=== PATIENT | female | born 1995 | race Hispanic/Latino ===

== ENCOUNTER 2022-07-23 08:49 | Emergency (ER) | payer OTHER ==
--- OUTSIDE RECORDS SUMMARY | 2022-07-23 08:54 | XMS REPORT | Continuity of Care Document ---
:1995 Author Organization [facility] t Address [address] [place] [address] Care Team Providers Name Role Phone Andreas Padilla MD Primary Care Physician ANDREAS PADILLA Attending Clinician Unavailable Margarita Ness PA-C Attending Clinician 2, Ad[facility] Lab Attending Clinician Unavailable Andreas Padilla MD Attending Clinician LISA STOCK Attending Clinician Unavailable Lisa Stock MD Attending Clinician Loly Chaidez MD Attending Clinician Doctor Unassigned, [place] Attending Clinician Unavailable Ultrasound, Ang-Mfm Attending Clinician Unavailable Mehreen Reeves MD Attending Clinician MEHREEN REEVES Attending Clinician Unavailable MEHREEN REEVES Attending Clinician Unavailable LISA STOCK Admitting Clinician Unavailable Lisa Stock MD Admitting Clinician Payers Payer Name Policy Type Policy Number Effective Date Expiration Date Araseli garcia [facility] JOSE [id number] 2022 00:00:00 Problems Condition Condition Condition Status Onset Resolution Last Treating Co mments Source Name Details Category Date Date Treatment Clinician Date Unprotecte Unprotecte Disease Active 2021-09 U nivers d sexual d sexual 09-12 [place] Medical Branch Encounter Encounter Disease Active 2021-09 Uni vers for for 08 [place] of screening [place] 00 Medical maternal maternal Branch depression depression Normal Normal Disease Active 2021-09 Univers labor labor 0-02 ity of 00:00: [place] 00 Medical [place] Liveborn Liveborn Disease Active 2021-09 Unive rs infant, of infant, of 0-02 it y of hunt hunt 00:00: Jennifer frank , , 00 Me dical born in born in [facility] hospital by vaginal by vaginal delivery delivery Encounter Encounter Disease Active Uni vers for for 05-14 [place] of supervisio [place] n of high 00 Medi danay risk risk [place] with with insufficie insufficie nt nt care, care, antepartum antepartum BMI BMI Disease Active Univers 40.0-44.9, 40.0-44.9, 05-14 it y of adult adult 00:00: [facility] Obesity in Obesity in Disease Active U nivers 05-14 ity of 00:00: [facility] Allergies, Adverse Reactions, Alerts Allergy Allergy Status Severity Reaction(s) Onset Inactive Treating Comm ents Source Name Type Date Date Clinician PEANUT DRUG Active Med ITCHING 2021-09 Univers INGREDI 0-02 ity of 00:00: [place] 00 [facility] Peanut Propensi Active Rash 2021-09 Univers ty to 0-02 ity of adverse 00:00: [place] reaction 00 [facility] s [place] NO KNOWN Drug Active Univers ALLERGIE Class ity of S [facility] Social History Social Habit Start Date Stop Date Quantity Comments Source ASSERTION 2021-09-18 University of 00:00:00 [facility] History of tobacco Passive smoker Un iversity of use [facility] History [facility] o f Alcohol Frequency [facility] edical Branch History [facility] University o f Alcohol Std Drinks [facility] History [facility] o f Alcohol Binge [place] Medic al [place] Exposure to 2022-07-03 2022-07-13 Not sure University SARS-CoV-2 (event) 00:00:00 14:14:00 [facility] Alcohol intake 2022-07-13 2022-07-13 Ex-drinker [facility] 00:00:00 00:00:00 (finding) [facility] Cigarettes smoked 2022-06-06 2022-06-06 Univers ity of current (pack per 00:00:00 00:00:00 [place] M ) - Reported Branch Tobacco use and 2022-06-06 2022-06-06 Smokeless Universit y of exposure 00:00:00 00:00:00 tobacco non-user [facility] dical Branch Alcohol Comment 2022-05-14 2022-05-14 2x a month Universit y of 00:00:00 00:00:00 [facility] Sex [birth year] At [birth year] Universit y of 00:00:00 00:00:00 [facility] Smoking Status Start Date Stop Date Source Ex-smoker 2022-06-06 00:00:00 2022-06-06 00:00:00 Universi ty of [facility] Medications Ordered Filled Start Stop Current Ordering Indication Dosage Frequency Signature Comments Components Source Medication Medication Date Date Medication? Clinician (SIG) Name Name preet 2021-09 Yes [id number] Take 1 Univers rol, 109 capsule by ity of vitamin d2, 00:00: mouth [place] 1,250 mcg 00 weekly. Medical (50,000 Branch unit) capsule No known 2021-09 No No known [place] rs medications 1-08 medication it y of 14:43: s [place] 19 Medical Branch 2021-09- No Take by Unive rs 25/iron 0-03 10-03 mouth. ity of fum/folic/d 07:56: 00:00 [place] 16 :00 Medical (-1 Branch ORAL) 2021-09- No Take by Unive rs 25/iron 0-03 10-03 mouth. ity of fum/folic/d 07:56: 00:00 [place] rebollar 16 :00 Medical (-1 Branch ORAL) 2021-09- No Take by [place] rs 25/iron 0-03 10-03 mouth. ity of fum/folic/d 07:56: 00:00 [place] rebollar 16 :00 Medical (-1 Branch ORAL) 2021-09- No Take by Unive rs 25/iron 0-03 10-03 mouth. ity of fum/folic/d 07:56: 00:00 [place] rebollar 16 :00 Medical (-1 Branch ORAL) 2021-09 Yes [id number] 1{tbl} Take 1 Univers vitamin 0-03 tablet by ity of w/FA tablet 00:00[place] the Medical morning. Branch docusate 2021-09 Yes [id number] 200mg Take 2 U nivers 100 mg 0-03 capsules ity of capsule 00:00: by mouth [place] 00 once daily Medical as needed Branch for Constipati on. ferrous 2021-09 Yes [id number] 325mg Take 1 Un luis miguel sulfate 325 0-03 tablet by ity of mg (65 mg 00:00: [place] iron) 00 the Medical tablet morning Branch and 1 tablet in the evening. ibuprofen 2021-09 Yes [id number] 600mg Take 1 Univers 600 mg 0-03 tablet by ity of tablet 00:00: mouth [place] 00 every 6 Medical (six) Branch hours as needed (Pain). Take with food or milk. 2021-09- No [id number] 1{tbl} Take 1 Univers vitamin 0-03 11-08 tablet by ity of w/FA tablet 00:00: 00:00 mouth [place] :00 the Medical morning. Branch docusate 2021-09- No [id number] 200mg Take 2 Univers 100 mg 0-03 11-08 capsules ity of capsule 00:00: 00:00 by mouth [place] 00 :00 once daily Medical as needed Branch for Constipati on. ferrous 2021-09- No [id number] 325mg Take 1 U nivers sulfate 325 0-03 11-08 tablet by it y of mg (65 mg 00:00: 00:00 mouth in [place] iron) 00 :00 the Medical tablet morning Branch and 1 tablet in the evening. ibuprofen 2021-09- No [id number] 600mg Take 1 Univers 600 mg 0-03 11-08 tablet by ity of tablet 00:00: 00:00 mouth [place] 00 :00 every 6 Medical (six) Branch hours as needed (Pain). Take with food or milk. rho(D) 2021-09 Yes 300ug 300 mcg, Univer s immune 0-02 Intramuscu ity of globulin 21:03: lar, ONCE, [place] (RHOGAM) 10 For 1 Medical syringe 300 dose, Branch mcg Conditiona l, Routine witch Katie 2021-09 Yes Topical, Un luis miguel (TUCKS) 50 0-02 Q4HPRN, ity of % topical 21:02: [place] pad 28 on Sun Medical 06/06/22 at Branch 1602, Until Discontinu ed, Routine, rectal/hem orrhoidal pain HYDROcodone 2021-09 Yes 1{tbl} 1 tablet, Univers -acetaminop 0-02 Oral, ity of hen (NORCO 21:01: Q6HPRN, [place] 5) 5-325 mg 51 Starting Medi danay tablet 1 on Sun Branch tablet 06/06/22 at 1601, Until Discontinu ed, Routine, Pain (scale 7-10) ibuprofen 2021-09 Yes 600mg 600 mg, Univ ers (IBU) 0-02 Oral, ity of tablet 600 21:: Q6HPRN, [place] mg 51 Starting Medical on Sun Branch 06/06/22 at 1601, Until Discontinu ed, Routine, Pain (scale 4-6) acetaminoph 2021-09 Yes 650mg 650 mg, Un luis miguel en 0-02 Oral, ity of (TYLENOL) 21:01: Q6HPRN, [place] tablet 650 51 Starting Medic al mg on Sun Branch 06/06/22 at 1601, Until Discontinu ed, Routine, Pain (scale 1-3) diphenhydrA 2021-09 Yes 25mg 25 mg, Univ ers MINE 0-02 Oral, ity of (BENADRYL) 21:01: Q6HPRN, [place] tablet 25 51 Starting Medica l mg on Sun Branch 06/06/22 at 1601, Until Discontinu ed, Routine, Sleep, Itching ondansetron 2021-09 Yes 4mg 4 mg, Slow Univers (ZOFRAN 0-02 IV Push, ity of (PF)) 21:01: Q8HPRN, [place] injection 4 51 Starting Medi danay mg on Sun Branch 06/06/22 at 1601, Until Discontinu ed, Routine, Nausea and Vomiting (N/V) simethicone 2021-09 Yes 160mg 160 mg, Un luis miguel (GAS RELIEF 0-02 Oral, ity of (SIMETHICON 21:01: PC+HSPRN, [place] E)) 50 Starting Medical chewable on Sun Branch tablet 160 10/2/22 at mg 1601, Until Discontinu ed, Routine, Gas docusate 2021-09 Yes 200mg 200 mg, Unive rs (COLACE) 0-02 Oral, ity of capsule 200 21:01: QDAILYPRN, [place] mg 50 Starting Medical on Sun Branch 06/06/22 at 1601, Until Discontinu ed, Routine, Constipati on magnesium 2021-09 Yes 30mL 30 mL, Univer s hydroxide 0-02 Oral, ity of (MILK OF 21:01: QDAILYPRN, [place] MAGNESIA) 50 Starting Medica l 400 mg/5 mL on [place] Branch suspension 06/06/22 at 30 mL 1601, Until Discontinu ed, Routine, Constipati on benzocaine- 2021-09 Yes Topical, Un luis miguel menthol 0-02 PRN, ity of (DERMOPLAST 21:01: [place] 20-0.5 % 50 on [place] Medical topical 06/06/22 at Branch spray 1601, Until Discontinu ed, Routine, Perineum discomfort fentaNYL-ro 2021-09- No Epidural, Univers pivacaine 2 006-06 ONCE INTRA i ty of mcg/mL-0.1 17:44: 22:56 PROCEDURE, [place] % (PF) in 00 :52 Starting Medica l NS 200 mL on Counts Include 234 Beds [facility] epidural 06/06/22 at infusion 1244, RTU Until 06/06/22 at 1756, Routine, Intra-op lidocaine-e 2021-09- No Intraderma Univers pinephrine 0-02 l, ONCE ity o f (XYLOCAINE 17:41: 22:56 INTRA [place] W/EPINEPHRI 00 :52 PROCEDURE, Me dical NE) 1.5 Starting Branch %-1:200,000 on [place] injection 06/06/22 at 1241, Until 06/06/22 at 1756, Routine, Intra-op FENTanyl PF 2021-09- No 100ug 100 mcg, Univers (SUBLIMAZE 006-06 Slow IV ity o f (PF)) 16:13: 21:03 Push, [place] injection 38 :09 Q1HPRN, 2 Medic al 100 mcg doses, Branch Starting on 06/06/22 at 1113, Until 06/06/22 at 1603, Routine, Pain (scale 7-10) 2021-09 Yes Take by Univer s 25/iron 0-02 mouth. ity of fum/folic/d 16:03: [place] rebollar 11 Medical (-1 Branch ORAL) lactated 2021-09- No 500mL at 999 Unive rs ringers IV 0-02 10-02 mL/hr, 500 it y of infusion 15:40: 21:03 mL, IV [place] 500 mL 17 :09 Infusion, Medical PRN - SEE Branch INSTRUCTIO NS, Starting on 06/06/22 at 1040, Until 06/06/22 at 1603, Routine D5W-LR IV 2021-09- No 1000mL at 1-125 U nivers infusion 0-02 10-02 mL/hr, IV ity o f 1,000 mL 15:40: 21:03 Infusion, [place] 17 :09 TITRATE, Medical Starting Branch on 06/06/22 at 1040, Until 06/06/22 at 1603, Routine 0 Yes Take by Univer s 25/iron 9-15 mouth. ity of fum/folic/d 13:08: [place] [id number] Medical (-1 Branch ORAL) Yes Take by Univer s 25/iron 9-15 mouth. ity of fum/folic/d 13:08: [place] [address] Medical (-1 Branch ORAL) Yes Take by Univer s 25/iron 9-15 mouth. ity of fum/folic/d 13:08: [place] [address] Medical (-1 Branch ORAL) 0 Yes Take by Univer s 25/iron 9-15 mouth. ity of fum/folic/d 13:08: [place] [address] Medical (-1 Branch ORAL) 0 Yes Take by Univer s 25/iron 9-15 mouth. ity of fum/folic/d 13:08: [place] [address] Medical (-1 Branch ORAL) Yes Take by Univer s 25/iron 9-09 mouth. ity of fum/folic/d 11:38: [facility] 22 Medical (-1 Branch ORAL) Yes Take by Univer s 25/iron 9-09 mouth. ity of fum/folic/d 11:38: [place] rebollar 22 Medical (-1 Branch ORAL) ferrous Yes [id number] 325mg Take 1 Un luis miguel sulfate 9-09 tablet by ity of (IRON, 00:00: mouth in [place] FERROUS 00 the Medical SULFATE,) morning Branch 325 mg (65 and 1 mg iron) tablet in tablet the evening. ferrous Yes [id number] 325mg Take 1 Un luis miguel sulfate 9-09 tablet by ity of (IRON, 00:00: mouth in [place] FERROUS 00 the Medical SULFATE,) morning Branch 325 mg (65 and 1 mg iron) tablet in tablet the evening. ferrous Yes [id number] 325mg Take 1 Un luis miguel sulfate 9-09 tablet by ity of (IRON, 00:00: mouth in [place] FERROUS 00 the Medical SULFATE,) morning Branch 325 mg (65 and 1 mg iron) tablet in tablet the evening. ferrous Yes [id number] 325mg Take 1 Un luis miguel sulfate 9-09 tablet by ity of (IRON, 00:00: mouth in [place] FERROUS 00 the Medical SULFATE,) morning Branch 325 mg (65 and 1 mg iron) tablet in tablet the evening. ferrous Yes [id number] 325mg Take 1 Un luis miguel sulfate 9-09 tablet by ity of (IRON, 00:00: mouth in [place] FERROUS 00 the Medical SULFATE,) morning Branch 325 mg (65 and 1 mg iron) tablet in tablet the evening. ferrous Yes [id number] 325mg Take 1 Un luis miguel sulfate 9-09 tablet by ity of (IRON, 00:00: mouth in [place] FERROUS 00 the Medical SULFATE,) morning Branch 325 mg (65 and 1 mg iron) tablet in tablet the evening. ferrous Yes [id number] 325mg Take 1 Un luis miguel sulfate 9-09 tablet by ity of (IRON, 00:00: mouth in [place] FERROUS 00 the Medical SULFATE,) morning Branch 325 mg (65 and 1 mg iron) tablet in tablet the evening. ferrous Yes [id number] 325mg Take 1 Un luis miguel sulfate 9-09 tablet by ity of (IRON, 00:00: mouth in [place] FERROUS 00 the Medical SULFATE,) morning Branch 325 mg (65 and 1 mg iron) tablet in tablet the evening. ferrous 2022- No [id number] 325mg Take 1 U nivers sulfate 05-14 tablet by ity of (IRON, 00:00: 00:00 mouth in [place] FERROUS 00 :00 the Medical SULFATE,) morning Branch 325 mg (65 and 1 mg iron) tablet in tablet the evening. ferrous No [id number] 325mg Take 1 U nivers sulfate 05-14 tablet by ity of (IRON, 00:00: 00:00 mouth in [place] FERROUS 00 :00 the Medical SULFATE,) morning Branch 325 mg (65 and 1 mg iron) tablet in tablet the evening. ferrous 2021- No [id number] 325mg Take 1 U nivers sulfate 05-14 tablet by ity of (IRON, 00:00: 00:00 mouth in [place] FERROUS 00 :00 the Medical SULFATE,) morning Branch 325 mg (65 and 1 mg iron) tablet in tablet the evening. ferrous No [id number] 325mg Take 1 U nivers sulfate 05-14 tablet by ity of (IRON, 00:00: 00:00 mouth in [place] FERROUS 00 :00 the Medical SULFATE,) morning Branch 325 mg (65 and 1 mg iron) tablet in tablet the evening. Vital Signs Vital Name Observation Time Observation Value Comments Source Systolic blood 2022-07-13 19:39:00 119 mm[Hg] [facility] 2022-07-13 19:39:00 83 mm[Hg] [facility] rate 2022-07-13 19:39:00 60 /min [facility] Body temperature 2022-07-13 19:39:00 37.06 [facility] Body height 2022-07-13 19:39:00 157.5 cm [facility] Body weight 2022-07-13 19:39:00 102.513 kg [facility] BMI 2022-07-13 19:39:00 41.34 kg/m2 [facility] Systolic blood 2022-06-07 18:00:00 121 mm[Hg] [facility] Diastolic blood 2022-06-07 18:00:00 77 mm[Hg] [facility] Heart rate 2022-06-07 18:00:00 62 /min Universi ty of [place] [facility] Body temperature 2022-06-07 18:00:00 36.28 [place] Univ ersity of [place] [facility] Respiratory rate 2022-06-07 18:00:00 18 /min Univ ersity of [place] [facility] Oxygen saturation in 2022-06-07 09:39:00 100 /min University of Arterial blood by [facility] Pulse oximetry Branch Body height 2022-06-06 15:20:00 157.5 cm Universi ty of [place] [facility] Body weight 2022-06-06 15:20:00 107.956 kg Universi ty of [place] [facility] BMI 2022-06-06 15:20:00 43.53 kg/m2 Universi ty of [place] [facility] Systolic blood 2022-05-27 13:27:00 117 mm[Hg] Univer sity of pressure [place] [facility] Diastolic blood 2022-05-27 13:27:00 77 mm[Hg] Unive rsity of pressure [place] [facility] Heart rate 2022-05-27 13:27:00 79 /min Universi ty of [place] [facility] Body temperature 2022-05-27 13:27:00 36.56 [place] Univ ersity of [place] [facility] Respiratory rate 2022-05-27 13:27:00 18 /min Univ ersity of [place] [facility] Body height 2022-05-27 13:27:00 157.5 cm Universi ty of [place] [facility] Body weight 2022-05-27 13:27:00 108.5 kg Universi ty of [place] [facility] BMI 2022-05-27 13:27:00 43.75 kg/m2 Universi ty of [place] [facility] Systolic blood 2022-05-20 18:07:00 130 mm[Hg] Univer sity of pressure [place] [facility] Diastolic blood 2022-05-20 18:07:00 85 mm[Hg] Unive rsity of pressure [place] [facility] Heart rate 2022-05-20 18:07:00 69 /min Universi ty of [place] [facility] Body temperature 2022-05-20 18:07:00 37 [place] Univ ers[facility] [place] [facility] Respiratory rate 2022-05-20 18:07:00 18 /min Univ ersity of [place] [facility] Body height 2022-05-20 18:07:00 157.5 cm Universi [facility] Body weight 2022-05-20 18:07:00 107.049 kg Universi [facility] BMI 2022-05-20 18:07:00 43.16 kg/m2 [facility] Systolic blood 2022-05-14 16:39:00 129 mm[Hg] [facility] Di[facility] blood 2022-05-14 16:39:00 84 mm[Hg] [facility] Heart rate 2022-05-14 16:36:00 86 /min [facility] Body temperature 2022-05-14 16:36:00 36.89 [facility] Respiratory rate 2022-05-14 16:36:00 18 /min [facility] Body height 2022-05-14 16:36:00 157.5 cm [facility] Body weight 2022-05-14 16:36:00 107.502 kg [facility] BMI 2022-05-14 16:36:00 43.35 kg/m2 [facility] Procedures Procedure Date / Time Performing Clinician Source Performed CBC WITH DIFF 2022-06-07 08:39:00 Andreas Padilal [facility] ABORH CONFIRMATION (LAB 2022-06-06 23:15:00 [facility] ONLY) [facility] CENTRAL NEURAXIAL BLOCK 2022-06-06 18:00:38 Loly Chaidez [facility] HB ABO GROUPING 2022-06-06 15:55:00 [facility] RHO (D) IMMUNE GLOBULIN 2022-06-06 15:55:00 Andreas Padilla [facility] CBC WITH DIFF 2022-06-06 15:54:00 [facility] HEPATITIS B SURFACE 2022-06-06 15:54:00 [facility] Lisa [facility] ANTIGEN [facility] ADC OR DERICK ONLY - 2022-06-06 15:54:00 Lisa Stock [facility] RPR [facility] HIV 1/2 AG-AB WITH 2022-06-06 15:54:00 Lisa Stock y of [place] REFLEX [facility] ASSIGNMENT OF BENEFITS 2022-06-06 14:56:44 Doctor Unassigned, No [facility] CONSENT/REFUSAL FOR 2022-06-06 14:51:45 [facility] Unassigned, No [facility] Name [facility] EXTERNAL PROVIDER 2022-05-31 05:01:00 Doctor Unassigned, No [facility] RECORDS Name [facility] POCT URINALYSIS W/O 2022-05-27 00:00:00 [facility] SPECIFIC GRAVITY [facility] NON-STRESS TEST 2022-05-21 03:54:51 Andreas Padilla [facility] POCT URINALYSIS W/O 2022-05-20 00:00:00 Andreas Padilla [facility] GROUP B STREPTOCOCCUS BY 2022-05-14 18:01:00 Andreas Padilla Uni [facility] >14 WEEKS US 2022-05-14 17:31:41 Andreas Padilla [facility] POCT TEST 2022-05-14 16:44:00 Andreas Padilla [facility] POCT URINALYSIS W/O 2022-05-14 16:43:00 Andreas Padilla [facility] Encounters Start End Encounter Admission Attending Care Care Encounter Source Date/Time Date/Time Type Type Clinicians Facility Department ID 2022-08-04 2022-08-04 Outpatient R ANDREAS PADILLA [facility] [id number] [facility] 10:30:00 10:30[facility]00 [facility]22-07-14 2022-07-14 Case Thi [facility] [id number] Univers 00:00:00 00:00:00 Management Margarita GREEN 350.1.13.10 [facility] 4.2.7.2.686 Jennifer LIEBERMAN [id number] Sc dical [address] 2022-07-13 2022-07-13 Photographic Process Attendant 2, Adc Lab [facility] [id number] Univers 14:30:00 14:45:00 Visit Andreas Padilla Sander REYNAASHA 350.1.13.10 ity of [place] 4.2.7.2.686 [place] PROFESSIO [id number] Sc dical NAL 353 [facility] 2022-07-13 2022-07-13 Outpatient R ANDREAS PADILLA [facility] [id number] Univers 13:15:00 14:12:14 ity of [facility] 2022-07-13 2022-07-13 Routine [facility] [id number] Univers 13:15:00 14:12:14 Sander GREEN 350.1.13.10 ity of [facility] 4.2.7.2.686 [facility] PROFESS[place] [id number] Sc dical NAL 134 [facility] 2022-06-06 2022-06-07 Inpatient X LISA STOCK [facility] GERM[facility]N [id number] Univers 09:56:00 19:08:00 ity of [facility] 2022-06-06 2022-06-07 Hospital Lisa Stock [facility] [id number] Univers 09:56:00 19:08:00 Encounter PETER 350.1.13.10 ity of [place] 4.2.7.2.686 [facility] [id number] [address] 2022-06-06 2022-06-06 [facility] [id number] Univers 12:32:00 16:43:00 Event Ollymayra GREEN 350.1.13.10 i ty of [place] 4.2.7.2.686 [facility] [id number] [address] 2022-06-03 2022-06-03 Outpatient R ANDREAS PADILLA [facility] [id number] Univers 09:15:00 09:15:00 ity of [facility] 2022-05-31 2022-05-31 Orders Doctor [facility] [id number] Univers 00:00:00 00:00:00 Only Unassigned, KIM 350.1.13.10 ity of [facility] 4.2.7.2.686 [place]ike as [id number] [address] 2022-05-27 2022-05-27 [facility] [id number] Univers 08:30:00 10:01:06 Cam [place] 350.1.13.10 ity of [place].686 [place] PROF[place] [id number] [address] 2022-05-27 2022-05-27 Outpatient R VALERIE [facility] [id number] Univers 08:30:00 10:01:06 ity of [facility] 2022-05-26 2022-05-26 Telephone [facility] [id number] Univers 00:00:00 00:00:00 Cam [place] 350.1.13.10 i ty of [place] 4[place]2.7.2.686 [place] PROF[place] [id number] [address] 2022-05-20 2022-05-20 Outpatient R VALERIE [facility] [id number] Univers 13:00:00 13:59:14 ity of [facility] 2022-05-20 2022-05-20 Routine [facility] [id number] Univers 13:00:00 13:59:14 Cam [place] 350.1.13.10 ity of [place] 4.2.7.2.686 [place] PROFESS[place] [id number] [address] 2022-05-20 2022-05-20 Outpatient R VALERIE [facility] [id number] Univers 13:00:00 13:00:00 ity of [facility] 2022-05-19 2022-05-19 Photographic Process Attendant Ultrasound, [facility] 1.2 .840.114 [id number] Univers 11:15:00 12:00:00 Visit Mehreen Reeves LACQUER SIZER 350.1.13.10 ity of [facility] 4.2.7.2.686 Kike as MATERNAL [id number] Med ical & CHILD [address] [place] [address] 2022-05-19 2022-05-19 Outpatient P [facility] [id number] Univers 11:15:00 11:15:00 [facility] 2022-05-19 2022-05-19 Outpatient P MEHREEN REEVES [facility] [id number] Univers 11:15:00 11:15:00 LEANDROMEHREEN [facility] 2022-05-14 2022-05-14 Outpatient R VALERIE [facility] [id number] Univers 11:00:00 12:32:07 [facility] 2022-05-14 2022-05-14 Outpatient R VALERIE [facility] [id number] Univers 11:00:00 12:32:07 [facility] 2022-05-14 2022-05-14 Initial [facility] [id number] [facility] 11:00:00 12:32:07 Cam ANDOVER [id number] i ty of Visit WOMEN'S [id number] [facility] [phone] [address] Results Test Description Test Time Test Comments Results Result Comments Source ADC OR DERICK ONLY - RPR 2022-06-07 05:46:03 Test Item Value Reference Range Interpretation Comme nts RPR (Qualitative) (test code = 20706-7) Nonreactive Nonreactive Lab Interpretation (test code = 68106-9) [facility] IMMUNE [id number] 23:48:33 Test Item Value Reference Range Interpretation Comments RHIG CANDIDATE? No- see comment Patient i s not a (test code = candidate for R hIg- 5055) Patient is Rh Positive.Perfor med at [facility] Laboratory Services - [facility] [address] [place], [place] [address]Bbjf Free: [phone] A No. [id number] [facility] Confirmation (Lab Only)2022-06-06 23:47:37 Test Item Value Reference Range Interpretation Comments ABO & RH (test code O Positive Performe d at [facility] = 20) Laboratory Serv ices - [facility] Blood [address] [place] [address] Free: [phone] A No. [id number] [facility] Surface [id number] 23:29:41 Test Item Value Reference Range Interpretation Comments HBsAg Semi-Quantitative (test code = Negative Negative 5195-3) [facility]2 AG-AB WITH [id number] 17:47:29 Test Item Value Reference Range Interpretation Comments HIV Negative Negative Semi-quantitative (test code = 31794-2) SABINO (test code = Non-reactive for HIV-1 SABINO) antigen and HIV-1/HIV-2 antibodies. ?No laboratory evidence of HIV infection. ?Repeat in 2-4 weeks if acute HIV infection is suspected. [facility] Screen - ONCE [id number] 17:03:38 Test Item Value Reference Range Interpretation Comments ABO & RH (test code O Positive Performe d at [facility] = 20) Laboratory [facility] Blood [address] [place] [address] Free: [phone] A No. [id number] IAT (test code = Negative Performed a t [facility] 1185) Laboratory [facility] Blood [address] [place] [address] Free: [phone] A No. [id number] [facility]CBC with [id number] 16:07:42 Test Item Value Reference Range Interpretation Comments WBC (test code = See_Comment H [Automated 7666-2) message] The system which generated this result transmit margo reference range : 4.30 - 11.10 10*3/?L. The reference range was not used to interpret this result as normal/abnormal . RBC (test code = See_Comment [Automated 189-8) message] The system which generated this result transmit margo reference range : 3.93 - 5.25 10*6/?L. The reference range was not used to interpret this result as normal/abnormal . HGB (test code = 13.0 g/dL 11.6-15 718-7) HCT (test code = 38.2 % 35.7-45.2 4544-3) MCV (test code = 87.0 fL 80.6-95.5 787-2) MCH (test code = 29.6 pg 25.9-32.8 785-6) MCHC (test code = 34.0 g/dL 31.6-35.1 786-4) RDW-SD (test code = 46.7 fL 39-49.9 58316-4) RDW-CV (test code = 14.7 % 12-15.5 788-0) PLT (test code = See_Comment [Automated 777-3) message] The system which generated this result transmit margo reference range : 166 - 358 10*3/ ?L. The reference range was not u sed to interpret th is result as normal/abnormal . MPV (test code = 11.1 fL 9.5-12.9 96053-8) NRBC/100 WBC (test See_Comment [Automat ed code = [id number]) message] The system which generated this result transmit margo reference range : 0.0 - 10.0 /100 WBCs. The reference range was not used to interpret this result as normal/abnormal . NRBC x10^3 (test code See_Comment [Auto mated = [id number]) message] The system which generated this result transmit margo reference range : 10*3/?L. The reference range was not used to interpret this result as normal/abnormal . GRAN MAT (NEUT) % 81.3 % (test code = 770-8) IMM GRAN % (test code 0.40 % = [id number]) LYMPH % (test code = 12.7 % 736-9) MONO % (test code = 5.1 % 5905-5) EOS % (test code = 0.2 % 713-8) BASO % (test code = 0.3 % 706-2) GRAN MAT x10^3(ANC) 10.09 10*3/uL 1.88-7.09 H (test code = 7608806781) IMM GRAN x10^3 (test 0.05 10*3/uL 0-0.06 code = 5039320894) LYMPH x10^3 (test code 1.58 10*3/uL 1.32-3.29 = 731-0) MONO x10^3 (test code 0.64 10*3/uL 0.33-0.92 = 742-7) EOS x10^3 (test code = 0.03 10*3/uL 0.03-0.39 711-2) BASO x10^3 (test code 0.04 10*3/uL 0.01-0.07 = 704-7) Lab Interpretation Abnormal (test code = 80517-7) [facility] URINALYSIS W/O SPECIFIC [id number] 14:13:00 Test Item Value Reference Range Interpretation Comments POCT PH U (test code = 3254) n/a 5-8 POCT U LEUK EST (test code = n/a Negative - Negative 3263) POCT U NIT (test code = 3262) n/a Negative - Negative POCT U PROT (test code = 3259) trace Negative - Negative POCT U GLU (test code = 3256) negative Negative - Negative POCT U KETONE (test code = 3258) n/a Negative - Negative POCT U BLD (test code = 3257) n/a Negative - Negative [facility] URINALYSIS W/O SPECIFIC [id number] 14:13:00 Test Item Value Reference Range Interpretation Comments POCT PH U (test code = 3254) n/a 5-8 POCT U LEUK EST (test code = n/a Negative - Negative 3263) POCT U NIT (test code = 3262) n/a Negative - Negative POCT U PROT (test code = 3259) trace Negative - Negative POCT U GLU (test code = 3256) negative Negative - Negative POCT U KETONE (test code = 3258) n/a Negative - Negative POCT U BLD (test code = 3257) n/a Negative - Negative [facility] URINALYSIS W/O SPECIFIC [id number] 18:10:00 Test Item Value Reference Range Interpretation Comments POCT PH U (test code = 3254) n/a 5-8 POCT U LEUK EST (test code = 3263) n/a Negative - Negative POCT U NIT (test code = 3262) n/a Negative - Negative POCT U PROT (test code = 3259) neg Negative - Negative POCT U GLU (test code = 3256) neg Negative - Negative POCT U KETONE (test code = 3258) n/a Negative - Negative POCT U BLD (test code = 3257) n/a Negative - Negative [facility] URINALYSIS W/O SPECIFIC [id number] 18:10:00 Test Item Value Reference Range Interpretation Comments POCT PH U (test code = 3254) n/a 5-8 POCT U LEUK EST (test code = 3263) n/a Negative - Negative POCT U NIT (test code = 3262) n/a Negative - Negative POCT U PROT (test code = 3259) neg Negative - Negative POCT U GLU (test code = 3256) neg Negative - Negative POCT U KETONE (test code = 3258) n/a Negative - Negative POCT U BLD (test code = 3257) n/a Negative - Negative [facility] URINALYSIS W/O SPECIFIC [id number] 18:10:00 Test Item Value Reference Range Interpretation Comments POCT PH U (test code = 3254) n/a 5-8 POCT U LEUK EST (test code = 3263) n/a Negative - Negative POCT U NIT (test code = 3262) n/a Negative - Negative POCT U PROT (test code = 3259) neg Negative - Negative POCT U GLU (test code = 3256) neg Negative - Negative POCT U KETONE (test code = 3258) n/a Negative - Negative POCT U BLD (test code = 3257) n/a Negative - Negative [facility] [id number] 16:44:00 Test Item Value Reference Range Interpretation Comments POCT PREG (test code = 1605) Positive On board controls acceptable with C Yes Line (test code = 3574) POCT PREG LOT # (test code = 3575) POCT PREG TEST DATE (test code = 3576) [facility] [id number] 16:44:00 Test Item Value Reference Range Interpretation Comments POCT PREG (test code = 1605) Positive On board controls acceptable with C Yes Line (test code = 3574) POCT PREG LOT # (test code = 3575) POCT PREG TEST DATE (test code = 3576) [facility] URINALYSIS W/O SPECIFIC [id number] 16:43:00 Test Item Value Reference Range Interpretation Comments POCT PH U (test code = 3254) n/a 5-8 POCT U LEUK EST (test code = n/a Negative - Negative 3263) POCT U NIT (test code = 3262) n/a Negative - Negative POCT U PROT (test code = 3259) negative Negative - Negative POCT U GLU (test code = 3256) negative Negative - Negative POCT U KETONE (test code = 3258) n/a Negative - Negative POCT U BLD (test code = 3257) n/a Negative - Negative [facility] URINALYSIS W/O SPECIFIC [id number] 16:43:00 Test Item Value Reference Range Interpretation Comments POCT PH U (test code = 3254) n/a 5-8 POCT U LEUK EST (test code = n/a Negative - Negative 3263) POCT U NIT (test code = 3262) n/a Negative - Negative POCT U PROT (test code = 3259) negative Negative - Negative POCT U GLU (test code = 3256) negative Negative - Negative POCT U KETONE (test code = 3258) n/a Negative - Negative POCT U BLD (test code = 3257) n/a Negative - Negative [facility] METABOLITE, QUANT, [id number] 17:05:15 Test Item Value Reference Range Interpretation Comments CARBOXY-THC Positive A INTERP (test code = 24793) CARBOXY-THC 86 ng/mL <15 H Reference rang e indicates QNT (test cutoff for posi tive result code = 50406) determination. Specimen Type: Urine Urine nicolasa g and metabolite concentrations are dependent on manyfactors, in cluding patient compliance, nicolasa g dosing, dosing interval,indivi dual variation in drug absorption and metabolism, urineconcentrat ion, and limitations of testing. Assay is intended formed ical purposes only, not for f orensic use. This test was alexo otto and its performance characteristics determined by [facility] ([facility]). It has n ot beencleared or approved by the U.S. Food and Drug Administra tion (FDA).The FDA has determi julianne that such clearance or ap proval is notnecessary. T his test is used for clinical pu rposes and should not beregarded as investigational or for research. [facility] is qualifie d toperform high complexity test ing under the Clinical Labora toryImprovement Amendments (CLI A). TESTING PERFORMED AT [facility] [address] [place] [address] CLIA N O: [id number] UNLESS OTHERWIS E INDICATED, ALL TESTING PERFORM ED ATCLINICAL PATHOLOGY [facility] [address] [place] [address] LABORATORY DIRE CTOR: CASSI NAPIER M.D. CLIA NUMBER [id number] [place]. [id number] CULTURE, [id number] 12:01:18SPECIMEN NUMBER: [id number] CULTURE, URINE SPECIMEN NUMBER: [id number] SPECIMEN COMMENT: URINE SOURCE:URINE REPORT STATUS: FINAL FINAL REPORT: 04/29/2022 10-50,000 CFU/ML UROGENITAL JARED PRESENT NO COMM ON PATHOGENSHEMOGLOBIN [id number] 11:37:30 Test Item Value Reference Range Interpretation Comments HEMOGLOBIN A1 (test 97.5 % 95.0-98.5 code = 2575) HEMOGLOBIN A2 (test 2.5 % 1.6-3.7 code = 2576) HEMOGLOBIN F () 0.0 % 0.0-2.0 (test code = 2722) HEMOGLOBIN S (test NONE % NONE DETECTED code = 2724) HEMOGLOBIN C (test NONE % NONE DETECTED code = 2726) OTHER HEMOGLOBIN NONE DETEC % NONE DETECTED VARIANT (test code = 61933) PATHOLOGIST'S (NOTE) NO ABNORMAL INTERPRETATION (test HEMOGLO BINS code = 2577) IDENTIFIED. MULUGETA GERMAIN M.D. PAP TEST, THINPREP, [id number] 19:46:50 Test Item Value Reference Range Interpretation Comments SOURCE: (test Cervical/Endo code = 8001) cervical SLIDES: (test 1 code = 8011) LMP: (test code = 08/2021 8021) SPECIMEN (NOTE) Satisfactory f or ADEQUACY: (test evaluation. code = 01218) Endocervical cells/transform ation zone component present. INTERPRETATION: NILM/NO (test code = EPITH. --------- 49096) ABNORMALITY;S -------- EE BELOW NEGATIVE FO R INTRAEPITHELIAL LESION OR MALIGNANCY ( NILM) --------- --------- --------- - OTHER COMMENTS: (NOTE) Shift in broderick ra (test code = suggestive of b acterial 8081) vaginosis. PRODUCTION CONTROL SUPERVISOR: CARTER Overton (test code = LY,CT(ASCP) 8101) LOCATION: (test (NOTE) Specimens pr ocessed and code = 46450) [facility] [address] [place] [address], , CLIA: [id number] CPT: (test code = (NOTE) 42701 UNLE SS OTHERWISE 8140) INDICATED, COMP UTER AIDED AND CYTOTECHNOLOGIS T SCREENING PERFO RMED. The Pap test is a s creening test with an in herent, but low probabi lity of error. Your pat ient should be remin ded to consult you imm ediately if she experien lara any suspicious sign s or symptoms, regar dless of her Pap test re sult. An alternate repor t format containing imag es or consolidated pr ior Pap history is avai labcaitie as applicable. CT/NG, TMA, [id number] 19:39:06 Test Item Value Reference Range Interpretation Comments GONORRHEA, TMA NEGATIVE NEGATIVE Assay method ology is (test code = nucleic acid am plification 52005) by transcriptio n mediated amplification ( TMA) utilizing the A ptima Combo 2 Assay. CHLAMYDIA, TMA NEGATIVE NEGATIVE Assay method ology is (test code = nucleic acid am plification 07848) by transcriptio n mediated amplification ( TMA) utilizing the A ptPopcorn5 Combo 2 Assay. VAGINAL PATHOGENS DNA [id number] 16:21:41 Test Item Value Reference Range Interpretation Comments JUNE SPECIES (test code = ) NEGATIVE NEGATIVE G. VAGINALIS (test code = ) POSITIVE NEGATIVE A T. VAGINALIS (test code = ) NEGATIVE NEGATIVE HPV HIGH RISK WITH GENOTYPE, [id number] 16:14:16 Test Item Value Reference Range Interpretation Comments HPV HIGH RISK INTERP NEGATIVE NEGATIVE (test code = 11360) HPV 16 (test code = NEGATIVE 20865) HPV 18 (test code = NEGATIVE 45940) HPV, HR, OTHER NEGATIVE Testing meth odology is GENOTYPES (test code real-ti me PCR utilizing = 80502) hydrolysis prob es with the SnapSenseas 4800 system. The chapo t individually de tects genotypes 16 an d 18, as well as the oth er 12 high risk types (31,33,35,39,45 ,51,52,56 ,58,59,66,68). The expected result is negative. A neg ative result does not rule out the presence of HPV not included in the genotype set, a low leve l of infection or sp ecimen sampling error. UNLESS OTHERWISE INDIC ATED, ALL TESTING PERFORM ED ATCLINICAL PATH [facility], [facility]. [address] [place] [address] LABORATORY DIRE CTOR: CASSI MONZON M.D. CLIA NUMBER [id number] [place] [id number] VARICELLA ZOSTER [id number] 14:35:45 Test Item Value Reference Range Interpretation Comments VARICELLA ZOSTER IgG 282 INDEX SEE BELOW INTERP RETATION VZV IgG (test code = 87519) NEGATIVE . . . . . . . . . . . . INDEX < 135 EQUIVOCAL. . . . . . . . . . . . INDEX 1 35-164 NOTE: CONSIDER RETESTING IN A CLINICALLY SUITABLE PERIOD OF TIME , NO SOONER THAN 1-2 WEEKS. POSITIVE . . . . . . . . . . . . INDEX > =165 OBSTETRIC PANEL + [id number] 06:52:54 Test Item Value Reference Range Interpretation Comments WBC (test code = 6.7 K/UL 3.5-11.0 1001) RBC (test code = 3.77 M/UL 3.80-5.40 L 1002) HEMOGLOBIN (test 10.8 G/DL 11.5-15.5 L code = 1003) HEMATOCRIT (test 33.6 % 34.0-45.0 L code = 1004) MCV (test code = 89.1 fL 80.0-99.0 1005) MCH (test code = 28.6 PG 25.0-33.0 1006) MCHC (test code = 32.1 G/DL 31.0-36.0 1007) RDW (test code = 13.3 % 11.5-15.0 1038) NEUTROPHILS (test 61.1 % code = 1008) LYMPHOCYTES (test 30.4 % code = 1010) MONOCYTES (test 6.7 % code = 1011) EOSINOPHILS (test 1.2 % code = 1012) BASOPHILS (test 0.3 % code = 1013) IMMATURE 0.3 % GRANULOCYTES (test code = 1036) NUCLEATED RBCS 0.0 /100 WBC'S See_Comment [Automated message] (test code = 1065) The [employer] which generated this result transmit margo reference range : 0.0. The refere nce range was not u sed to interpret th is result as normal/abnormal . PLATELET COUNT 277 K/UL 130-400 (test code = 1015) ABSOLUTE 4.10 K/UL 1.50-7.50 NEUTROPHILS (test code = 1066) ABSOLUTE 2.04 K/UL 1.00-4.00 LYMPHOCYTES (test code = 1067) ABSOLUTE MONOCYTES 0.45 K/UL 0.20-1.00 (test code = 1068) ABSOLUTE 0.08 K/UL 0.00-0.50 EOSINOPHILS (test code = 1040) ABSOLUTE BASOPHILS 0.02 K/UL 0.00-0.20 (test code = 1069) ABS IMMATURE 0.02 K/UL 0.00-0.10 GRANULOCYTES (test code = 1020) ABS NUCLEATED RBCS 0.00 K/UL 0.00-0.11 (test code = 38373) BLOOD TYPE AND RH O POSITIVE A HISTORI DANAY RECORD (test code = 3902) CHECK FOR PREVIOUS RESULTS IS NOT PERFORMED.THESE RESULTS SHOULD BE CORRELATED WITH RESULTS OF PRIO R BLOODTYPING AND ANTIBODY SCREEN STUDIES. ANTIBODY SCREEN NEGATIVE NEGATIVE A HISTORICA L RECORD (test code = 3909) CHECK FOR PREVIOUS RESULTS IS NOT PERFORMED.THESE RESULTS SHOULD BE CORRELATED WITH RESULTS OF PRIO R BLOODTYPING AND ANTIBODY SCREEN STUDIES. RUBELLA ANTIBODY 81 IU/ML SEE BELOW INTERPRETA TION SCREEN (test code = RUBELLA IgG 4600) NON-REACTIVE/NO N-IMM UNE . . . . . . . IU/ML <10 REACTIVE/IMMUNE . . . . . . . . . . . IU/ML >=10 RUBELLA IgG INTERP REACTIVE REACTIVE (test code = 77874) HEPATITIS B SURF AG NON-REACTIVE NON-REACTIVE (test code = 2739) RPR (test code = NON-REACTIVE NON-REACTIVE 89413) RPR TITER (test NOT INDIC. NOT INDIC. code = 3500) TITER HIV 1/2 4TH GEN, NON-REACTIVE NON-REACTIVE RFLX CONF (test code = 3514) HEPATITIS C REFLEX [id number] 06:52:54 Test Item Value Reference Range Interpretation Comments HEPATITIS C ANTIBODY (test code NON-REACTIVE NON-REACTIVE = 4675) DRUG ABUSE SCREEN 10 REFLEX [id number] 06:00:22 Test Item Value Reference Interpretation Comments Range AMPHETAMINES (test NEGATIVE NEGATIVE code = 3201) BARBITURATES (test NEGATIVE NEGATIVE code = 3202) BENZODIAZEPINES NEGATIVE NEGATIVE (test code = 3203) CANNABINOIDS (test SEE REFLEX NEGATIVE A code = 3204) TESTING COCAINE METABOLITE NEGATIVE NEGATIVE (test code = 3205) OPIATES (test code = NEGATIVE NEGATIVE 3209) OXYCODONE (test code NEGATIVE NEGATIVE = 74577) PHENCYCLIDINE (test NEGATIVE NEGATIVE code = 3210) METHADONE (test code NEGATIVE NEGATIVE = 3207) BUPRENORPHINE (test NEGATIVE NEGATIVE code = 62411) SOURCE (test code = URINE SEE BELOW FOR 204884) THRESHOLDS AND IMPORTANT METHOD NOTES * ANALYTE SCREENING CUTOF F CONFIRMATORY CUTOFF ___AMPHETAMINES 500 NG/ML 100 NG/MLBARBITURAT ES 200 NG/ML 100 NG/MLBENZODIAZE PINES 200 NG/ML 100 NG/MLCANNABINOI DS (THC) 20 NG/ML 15 NG/ MLCOCAINE METABOLITES 150 NG/ML 100 NG/MLOPIATE METABOLITES 300 NG/ML 100 NG/MLOXYCOD ONE 100 NG/ML 100 NG/MLPHENCYCLID INE (PCP) 25 NG/ML 25 NG/MLMETHADONE 300 NG/ML 100 NG/MLBUPRE NORPHINE 5 NG/ML 5 NG/ML NOTE: Screening metho dology is qualitative Enz yme Immunoassay.The screening metho d may be less sensitive for certain medicationsincl uding clonazepam and lorazepam in the benzodia zepine assay andtramad ol or fentanyl in the opiate assay, amongst others. Patientcomplian ce, hydration statu s, timing and dose of med ications, drugabsorption and specimen qualit y may affect screenin g assay.For clini danay discrepancies, consider directed testin g for specificcompoun ds or contact the lab oratory within specimen stability tofor pena for confirmatory te sting. This test is sp ecified for medicalpurp oses only. It is not valid for forensic us e. [id number] 04:12:31 Test Item Value Reference Range Interpretation Comments RPR RESULT (test code = NON-REACTIVE NON-REACTIVE 3501) RPR TITER (test code = 3500) NOT INDIC. TITER NOT INDIC.
[2022-07-23] MEDS ORDERED: AZITHROMYCIN 250 MG TAB ONE (10:57)
[2022-07-23] MEDS ORDERED: IBUPROFEN 400 MG TAB ONE (10:57)
[2022-07-23 11:39] LABS: SARS-COV-2 RT PCR NEGATIVE (NEGATIVE)
--- NOTE | 2022-07-23 11:45 | RAD REPORT ---
EXAM DESCRIPTION: RAD - Chest Pa And Lat (2 Views) - 07/23/2022 11:38 am CLINICAL HISTORY: COUGH COMPARISON: No comparisons FINDINGS: Lines: None. Lungs: No evidence of edema or pneumonia. Pleural: No significant pleural effusions or pneumothorax. Cardiac: The heart size is within normal limits. Mediastinum: Within normal limits. Bones: No acute fractures. Other: None IMPRESSION: No acute cardiopulmonary disease.
--- NOTE | 2022-07-23 11:56 | EDPHYS ---
Physician Documentation [facility] Name: Nithin Wilks Age: 26 yrs Sex: Female : 1995 Arrival Date: 07/23/2022 Time: 08:58 Bed 1 Private MD: ED Physician Keith Thao HPI: 07/23 11:52 This 26 yrs old Female presents to ER via Ambulatory with complaints of Flu ivon Symptoms. 11:52 The patient or guardian reports cough, described as mild. Onset: The symptoms/episode ivon began/occurred 2 day(s) ago. Modifying factors: The symptoms are alleviated by nothing. the symptoms are aggravated by nothing. Associated signs and symptoms: The patient has no apparent associated signs or symptoms. Severity of symptoms: At their worst the symptoms were mild in the emergency department the symptoms are unchanged. The patient has not experienced similar symptoms in the past. TICKET SORTER: 09:48 LMP N/A - Recent vg1 Historical: - Allergies: 09:49 No Known Allergies; vg1 - Home Meds: 09:49 Iron CR Oral [Active]; Vitamin D Oral [Active]; vg1 - PMHx: 09:49 None; vg1 - PSHx: 09:49 None; vg1 - Immunization history:: Client reports having NOT received the Covid vaccine. - Social history:: Smoking status: Patient denies any tobacco usage or history of. ROS: 11:52 Eyes: Negative for injury, pain, redness, and discharge, Neck: Negative for injury, ivon pain, and swelling, Cardiovascular: Negative for chest pain, palpitations, and edema, Abdomen/GI: Negative for abdominal pain, nausea, vomiting, diarrhea, and constipation, Back: Negative for injury and pain, : Negative for injury, bleeding, discharge, and swelling, MS/Extremity: Negative for injury and deformity, Skin: Negative for injury, rash, and discoloration, Neuro: Negative for headache, weakness, numbness, tingling, and seizure, Psych: Negative for depression, anxiety, suicide ideation, homicidal ideation, and hallucinations, Allergy/Immunology: Negative for hives, rash, and allergies, Endocrine: Negative for neck swelling, polydipsia, polyuria, polyphagia, and marked weight changes, Hematologic/Lymphatic: Negative for swollen nodes, abnormal bleeding, and unusual bruising. 11:52 Constitutional: Positive for fever. 11:52 Respiratory: Positive for cough, with no reported sputum. Exam: 11:53 Constitutional: This is a well developed, well nourished patient who is awake, alert, ivon and in no acute distress. Head/Face: Normocephalic, atraumatic. Eyes: Pupils equal round and reactive to light, extra-ocular motions intact. Lids and lashes normal. Conjunctiva and sclera are non-icteric and not injected. Cornea within normal limits. Periorbital areas with no swelling, redness, or edema. Neck: Trachea midline, no thyromegaly or masses palpated, and no cervical lymphadenopathy. Supple, full range of motion without nuchal rigidity, or vertebral point tenderness. No Meningismus. Chest/axilla: Normal chest wall appearance and motion. Nontender with no deformity. No lesions are appreciated. Cardiovascular: Regular rate and rhythm with a normal S1 and S2. No gallops, murmurs, or rubs. Normal PMI, no JVD. No pulse deficits. Respiratory: Lungs have equal breath sounds bilaterally, clear to auscultation and percussion. No rales, rhonchi or wheezes noted. No increased work of breathing, no retractions or nasal flaring. Abdomen/GI: Soft, non-tender, with normal bowel sounds. No distension or tympany. No guarding or rebound. No evidence of tenderness throughout. Back: No spinal tenderness. No costovertebral tenderness. Full range of motion. Skin: Warm, dry with normal turgor. Normal color with no rashes, no lesions, and no evidence of cellulitis. MS/ Extremity: Pulses equal, no cyanosis. Neurovascular intact. Full, normal range of motion. Neuro: Awake and alert, GCS 15, oriented to person, place, time, and situation. Cranial nerves II-XII grossly intact. Motor strength 5/5 in all extremities. Sensory grossly intact. Cerebellar exam normal. Normal gait. Psych: Awake, alert, with orientation to person, place and time. Behavior, mood, and affect are within normal limits. 11:53 ENT: Nose: nasal drainage, that is minimal, and is seen coming from both nares, Posterior pharynx: Tonsils: are normal in appearance, Uvula: normal, swelling, that is mild, erythema, that is mild. Vital Signs: 09:48 BP 126 / 80; Pulse 108; Resp 16; Temp 99.5(O); Pulse Ox 99% on R/A; Weight 120.66 kg; vg1 Height 5 ft. 2 in. (157.48 cm); Pain 5/10; 09:48 Body Mass Index 48.65 (120.66 kg, 157.48 cm) vg1 MDM: 09:56 Patient medically screened. ivon 07/23 09:34 Order name: COVID-19/FLU A+B; Complete Time: 11:51 vg1 07/23 10:50 Order name: Chest Pa And Lat (2 Views) XRAY; Complete Time: 11:51 ivon Administered Medications: 11:00 Drug: Motrin (ibuprofen) 800 mg Route: PO; ld1 11:00 Drug: Zithromax (azithromycin) 500 mg Route: PO; ld1 12:21 Drug: Tamiflu (oseltamivir) 75 mg Route: PO; ld1 Disposition Summary: 07/23/22 11:55 Discharge Ordered Location: Home [facility] Problem: new [facility] Symptoms: have improved [facility] Condition: Stable [facility] Diagnosis - Influenza due to identified novel influenza A virus ivon - Fever, unspecified ivon - Acute upper respiratory infection, unspecified ivon Followup: [facility] - With: Private Physician - When: 2 - 3 days - Reason: Recheck today's complaints, Continuance of care, Re-evaluation by your physician Discharge Instructions: - Discharge Summary Sheet ivon - Fever, Adult ivon - Upper Respiratory Infection, Adult ivon - Cool Mist Vaporizer ivon - Upper Respiratory Infection, Adult, [id number] ivon - Influenza, Adult, [id number] [facility] - Cough, Adult [facility] Forms: - Medication Reconciliation Form [facility] - Thank You Letter [facility] - Antibiotic Education [facility] - Prescription Opioid Use [facility] Prescriptions: - Zithromax Z-Anderson 250 mg Oral Tablet - take 1 tablet by ORAL route as directed for 5 days Day 1 - take two (2) tablets [facility] one time. Day 2, 3, 4 , 5 take one (1) tablet once daily.; 6 tablet; Refills: 0, Product Selection Permitted - Tamiflu 75 mg Oral Capsule - take 1 tablet by ORAL route every 12 hours for 5 days; 10 tablet; Refills: 0, [facility] Product Selection Permitted Signatures: Dispatcher [employer] Keith Corona MD MD cha Garcia, Victoria, RN RN vg1 Renetta Drummond, RN RN ld1
--- NOTE | 2022-07-23 11:56 | ER ---
Nurse's Notes [facility] Name: Nithin Wilks Age: 26 yrs Sex: Female : 1995 Arrival Date: 07/23/2022 Time: 08:58 Bed 1 Private MD: Diagnosis: Influenza due to identified novel influenza A virus;Fever, unspecified;Acute upper respiratory infection, unspecified Presentation: 07/23 09:49 Chief complaint: Patient states: cough, congestion, Left ear pain and body aches x 2 vg1 days. Coronavirus screen: Vaccine status: Patient reports being unvaccinated. Ebola Screen: Patient negative for fever greater than or equal to 101.5 degrees Fahrenheit, and additional compatible Ebola Virus Disease symptoms. Initial Sepsis Screen: Does the patient meet any 2 criteria? HR > 90 bpm. Does the patient have a suspected source of infection? No. Patient's initial sepsis screen is negative. Risk Assessment: Do you want to hurt yourself or someone else? Patient reports no desire to harm self or others. Onset of symptoms was July 22, 2022. 09:49 Acuity: BREE 4 vg1 09:49 Method Of Arrival: Ambulatory vg1 Triage Assessment: 09:48 General: Appears in no apparent distress. comfortable, Behavior is calm, cooperative. vg1 Pain: Complains of pain in left ear Pain currently is 5 out of 10 on a pain scale. Pain began 1 day ago. Neuro: Level of Consciousness is awake, alert, obeys commands, Oriented to person, place, time, situation. Respiratory: Reports cough that is Airway is patent Respiratory effort is even, unlabored. GI: Reports nausea. 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 - Social history:: Smoking status: Patient denies any tobacco usage or history of. Screenin:12 Abuse screen: Denies threats or abuse. Denies injuries from another. Nutritional ld1 screening: No deficits noted. Tuberculosis screening: No symptoms or risk factors identified. Fall Risk None identified. Assessment: 10:12 Reassessment: See triage assessment. ld1 10:12 Reassessment: Patient appears in no apparent distress at this time. Patient and/or ld1 family updated on plan of care and expected duration. Pain level reassessed. Vital Signs: 09:48 BP 126 / 80; Pulse 108; Resp 16; Temp 99.5(O); Pulse Ox 99% on R/A; Weight 120.66 kg; vg1 Height 5 ft. 2 in. (157.48 cm); Pain 5/10; 09:48 Body Mass Index 48.65 (120.66 kg, 157.48 cm) vg1 ED Course: 08:58 Patient arrived in ED. mr 09:49 Arm band placed on. vg1 09:51 Triage completed. vg1 09:56 Keith Thao MD is Attending Physician. [facility] 10:04 COVID-19/FLU A+B Sent. vg1 10:11 Renetta Drummond, SANTANA is Primary Nurse. ld1 10:12 Patient has correct armband on for positive identification. Bed in low position. Call ld1 light in reach. Side rails up X2. Pulse ox on. NIBP on. Door closed. Noise minimized. 10:12 No provider procedures requiring assistance completed. Patient did not have IV access ld1 during this emergency room visit. 11:40 Chest Pa And Lat (2 Views) XRAY In Process Unspecified. EDMS Administered Medications: 11:00 Drug: Motrin (ibuprofen) 800 mg Route: PO; ld1 11:00 Drug: Zithromax (azithromycin) 500 mg Route: PO; ld1 12:21 Drug: Tamiflu (oseltamivir) 75 mg Route: PO; ld1 Medication: 10:12 VIS not applicable for this client. ld1 Outcome: 11:55 Discharge ordered by . [facility] 12:22 Discharged to home ambulatory, with family. ld1 12:22 Condition: stable 12:22 Discharge instructions given to patient, family, Instructed on discharge instructions, follow up and referral plans. medication usage, Demonstrated understanding of instructions, follow-up care, medications, Prescriptions given X 3. 12:22 Patient left the ED. ld1 Signatures: Dispatcher [employer] EDMS Keith Thao MD MD cha Rivera, Mary mr Garcia, Victoria, RN RN vg1 Renetta Drummond, RN RN ld1
[2022-07-23] MEDS ORDERED: OSELTAMIVIR 75 MG CAP ONE (12:17)
[2022-07-23 12:51] VITALS: BP 126/80; TEMP 99.5; O2SAT 99
== END 2022-07-23 12:22 | disposition home or self-care (01) ==
LOC: ER 08:49
DX: J10.1 Influenza due to other identified influenza virus with other respiratory manifestations (principal); Z20.822 Contact with and (suspected) exposure to COVID-19
CPT/HCPCS: 0240U; 71046; 99284; Q0144